=== PATIENT | female | born 1955 | race Caucasian/White ===

== ENCOUNTER 2022-05-14 13:05 | Emergency (ER) | payer BC, SELFPAY ==
--- NOTE | ~2022-05-14 | XR_ITS ---
XR knee RT min 4V DATE: 05/14/2022 13:30 INDICATION: Patient fell on knee on Saturday. Anterior knee pain. TECHNIQUE: 4 views COMPARISON: None FINDINGS: There is a transverse fracture in the junction of the middle and inferior thirds of the pat young with minimal distraction of the fracture fragments. There is mild suprapatellar knee joint effusion. No other fracture or dislocation or any periosteal reaction or bone destruction is detected. IMPRESSION: Minimally displaced inferior patellar fracture Reviewed, dictated and finalized at location B.
[2022-05-14 13:17] VITALS: BP 165/104; PULSE 69; RESP 16; TEMP 36.6; O2SAT 94
--- NOTE | 2022-05-14 13:18 | ED.LOWEXIN ---
HPI - Extremity Injury (Lower) General Chief Complaint: Extremity Injury, Lower Stated Complaint: INJURED R KNEE Time Seen by Provider: 05/14/22 13:18 Source: patient Mode of arrival: ambulatory Limitations: no limitations History of Present Illness HPI Narrative: 66-year-old female presents with complaint of pain and swelling to right knee for 4 days. Patient reports pain and clicking when walking. States that she was walking down stairs 4 days ago and tripped. Fell down 1 stair and landed on right kneecap. Is concerned that she ?cracked her kneecap ?. Feels some instability to right knee when ambulatory. Arrived using one crutch. All systems reviewed and negative except as noted above. Related Data Home Medications Medication Instructions Recorded Confirmed albuterol sulfate 90 mcg/actuation inhalation 01/02/19 aerosol inhaler (Proventil HFA) fluticasone furoate 200 1 inh inhalation DAILY 05/14/22 05/14/22 mcg-vilanterol 25 mcg/dose inhalation powder Allergies Allergy/AdvReac Type Severity Reaction Status Date / Time amoxicillin Allergy Unknown Anaphylaxis Verified 05/14/22 13:21 Penicillins Allergy Unknown Anaphylaxis Verified 05/14/22 13:21 oxycodone Allergy Rash Verified 05/14/22 13:21 Review of Systems Review of Systems: CONSTITUTIONAL: Denies fever, chills, or sweats. EYES: Denies visual changes, redness, or discharge. ENT: Denies rhinorrhea, congestion, sore throat, or otalgia. CARDIOVASCULAR: Denies chest pain, palpitations, or edema. RESPIRATORY: Denies cough or dyspnea. GASTROINTESTINAL: Denies abdominal pain, nausea, vomiting, or diarrhea. GENITOURINARY: Denies dysuria or hematuria. SKIN: Denies rash or itching. MUSCULOSKELETAL: Reports pain and swelling to right knee. NEUROLOGIC: Denies headache, numbness, or weakness. PSYCHIATRIC: Denies anxiety or depression. All other systems reviewed are negative, except as documented in HPI. PMFSH Social History Social History (System 01/06/19 @ 12:02 by Mayruri Mario) Smoking status: Never smoker Comments At time of signature, agree with nursing past medical, surgical, social and family history. There is no relevant family history pertinent to the presenting complaint. Exam Narrative: GENERAL: This is a well-nourished, well-developed patient, in no apparent distress. HEAD: normocephalic, atraumatic. EYES: PERRL. Sclera clear/white. Vision is grossly intact. EARS: External ears normal NOSE: External nose normal NECK: Neck supple, non-tender without lymphadenopathy, masses or thyromegaly. CARDIOVASCULAR: Regular rate and rhythm without murmurs, gallops, or rubs. RESPIRATORY: Clear to auscultation. Breath sounds equal bilaterally. No wheezes, rales, or rhonchi. SKIN: warm, Dry, intact with no suspicious lesions or rash, good texture and turgor. NEURO: awake, alert, and oriented to person, place and time. There were no obvious focal neurologic abnormalities. EXTREMITIES: Tenderness and swelling to R patella. no instablity. Course Course Level of Care: Express Care Visit Vital Signs Vital signs: Vital Signs Temperature 36.6 C 05/14/22 13:17 Pulse Rate 69 05/14/22 13:17 Respiratory Rate 16 05/14/22 13:17 Blood Pressure 165/104 H 05/14/22 13:17 Pulse Oximetry 94 05/14/22 13:17 Oxygen Delivery Room Air 05/14/22 13:17 Temperature 36.6 C 05/14/22 13:17 Pulse Rate 69 05/14/22 13:17 Respiratory Rate 16 05/14/22 13:17 Blood Pressure 165/104 H 05/14/22 13:17 Pulse Oximetry 94 05/14/22 13:17 Oxygen Delivery Room Air 05/14/22 13:17 Reviewed MDM - Extremity Injury (Lower) MDM Narrative Medical decision making narrative: Patient is aware of diagnosis, understands and agrees to treatment plan. Anticipatory guidance given. Patient agrees to follow-up as directed and is aware of reasons to seek care at the emergency department. Portions of this record may have been created with voice r
== END 2022-05-14 13:42 | disposition home or self-care (01) ==
PROVIDERS: Emergency Provider Nurse Practitioner Family
DX: S82.001A Unspecified fracture of right patella, initial encounter for closed fracture (principal); W10.9XXA Fall (on) (from) unspecified stairs and steps, initial encounter
CPT/HCPCS: 73564; 99204; G0463; L1830